=== PATIENT | female | born 1980 | race Caucasian/White ===

== ENCOUNTER 2019-02-15 06:56 | Inpatient (IN) | payer MEDICAID ==
[~2019-02-15] VITALS: Ht 149.9 cm; Wt 76.7 kg
[2019-02-15] MEDS ORDERED: DEXT 5%/LR + PITOCIN 20UNITS/L 1,000 ML IV SCH ×2 (07:19→12:23)
[2019-02-15] MEDS ORDERED: CITRIC ACID/SODIUM CITRATE SOLN 30ML UDC PO NR (07:45)
[2019-02-15 08:49] LABS: BASOPHILS % 0.5 % (0.0-2.0); HEMATOCRIT. 37.4 % (36.0-48.0); HEMOGLOBIN. 12.8 g/dL (12.0-16.0); LYMPHOCYTES % 24.3 % (20.0-50.0); MEAN CORPUSCULAR HEMOGLOBIN 33.6 pg (28.0-32.0); MEAN CORPUSCULAR VOLUME 98.4 fL (81.0-99.0); MONOCYTES % 5.6 % (2.0-8.0); NEUTROPHILS % 68.6 % (40.0-76.0); RED CELL DISTRIBUTION WIDTH 14.2 % (11.6-14.6)
[2019-02-15 08:55] LABS: INR 0.9; PARTIAL THROMBOPLASTIN TIME 21.4 sec (23.4-31.0); PROTHROMBIN TIME 9.3 sec (9.6-11.0)
[2019-02-15 09:02] LABS: CLARITY URINE CLOUDY (CLEAR); COLOR URINE YELLOW (YELLOW); KETONES URINE NEGATIVE (NEGATIVE); LEUKOCYTE ESTERASE URINE 3+ (NEGATIVE); NITRITE URINE NEGATIVE (NEGATIVE); OCCULT BLOOD URINE NEGATIVE (NEGATIVE); PROTEIN URINE NEGATIVE (NEGATIVE); SPECIFIC GRAVITY URINE 1.016 (1.005-1.030); UROBILINOGEN URINE 0.2 E.U./dL (0.2-1.0)
[2019-02-15] MEDS ORDERED: STERILE WATER FOR INJECTION 10ML VIAL ONE (09:40)
[2019-02-15] MEDS ORDERED: BUPIVACAINE HCL/DEXTROSE/PF 0.75% 2ML AMP INJ ONE (09:43)
[2019-02-15 10:03] LABS: PLATELET 186 x1000/uL (130-400)
[2019-02-15 10:42] LABS: HEPATITIS B SURFACE ANTIGEN NEGATIVE
[2019-02-15] MEDS ORDERED: MORPHINE SULFATE/PF 1MG/ML 10ML AMP ONE (11:16)
[2019-02-15] MEDS ORDERED: PROPOFOL 200MG/20ML VIAL IV ONE (11:47)
[2019-02-15] MEDS ORDERED: HYDROMORPHONE HCL/PF 2MG/ML CPJ IM PRN (12:30)
[2019-02-15] MEDS ORDERED: RHO(D) IMMUNE GLOBULIN 300 MCG/SYR IM PRN (12:30)
[2019-02-15] MEDS ORDERED: BISACODYL 10MG SUPP PR PRN (12:30)
[2019-02-15 14:08] LABS: *BARBITURATES SCREEN URINE NEGATIVE (NEGATIVE); *BENZODIAZEPINES SCREEN URINE NEGATIVE (NEGATIVE); *COCAINE SCREEN URINE NEGATIVE (NEGATIVE)
[2019-02-15 14:09] LABS: *AMPHETAMINES SCREEN URINE NEGATIVE (NEGATIVE); CANNABINOID URINE SCREEN NEGATIVE (NEGATIVE); METHADONE URINE SCREEN NEGATIVE (NEGATIVE); OPIATES URINE SCREEN NEGATIVE (NEGATIVE); PHENCYCLIDINE URINE SCREEN NEGATIVE (NEGATIVE)
[2019-02-15 14:15] VITALS: BP 99/54
[2019-02-15 14:45] VITALS: BP 101/51
[2019-02-15 15:30] VITALS: BP 100/54
[2019-02-15 16:00] VITALS: BP 102/50
[2019-02-15 19:20] VITALS: BP 103/54
[2019-02-15] MEDS: LACTATED RINGERS 1,000 ML IV SCH (22:00)
[2019-02-15 23:30] VITALS: BP 99/65
[2019-02-16 04:00] VITALS: BP 90/64
[2019-02-16] MEDS: LACTATED RINGERS 1,000 ML IV SCH (04:04)
[2019-02-16 07:32] VITALS: BP 95/50
[2019-02-16 08:02] LABS: BASOPHILS % 0.1 % (0.0-2.0); EOSINOPHILS % 0.2 % (0.0-5.0); HEMATOCRIT. 31.5 % (36.0-48.0); LYMPHOCYTES % 21.3 % (20.0-50.0); MEAN CORPUSCULAR HEMOGLOBIN 34.1 pg (28.0-32.0); MEAN CORPUSCULAR VOLUME 97.7 fL (81.0-99.0); MEAN PLATELET VOLUME 10.2 fl (7.4-10.4); MONOCYTES % 7.1 % (2.0-8.0); NEUTROPHILS % 71.3 % (40.0-76.0); PLATELET 136 x1000/uL (130-400); RED BLOOD CELL COUNT 3.22 mill/uL (4.2-5.4); RED CELL DISTRIBUTION WIDTH 14.2 % (11.6-14.6)
[2019-02-16] MEDS: IBUPROFEN 800MG TABLET PO PRN ×3 (09:04→19:28)
[2019-02-16 16:08] VITALS: BP 90/50
[2019-02-16 19:30] VITALS: BP 90/53
[2019-02-17] VITALS: BP 98/56
[2019-02-17] MEDS: IBUPROFEN 800MG TABLET PO PRN ×3 (02:41→18:00)
[2019-02-17 08:00] VITALS: BP 98/86
[2019-02-17 16:32] VITALS: BP 104/63
[2019-02-17 20:15] VITALS: BP 101/60
[2019-02-18] MEDS: IBUPROFEN 400MG TABLET PO PRN ×2 (01:11→11:07)
[2019-02-18 04:00] VITALS: BP 98/56
[2019-02-18] MEDS: IBUPROFEN 800MG TABLET PO PRN (07:03)
[2019-02-18 08:00] VITALS: BP 114/70
== END 2019-02-18 11:00 | disposition home or self-care (01) | DRG 540 ==
LOC: 8 EST LDRP 06:56 → OBSVTOIN 06:56 → 8 EST LDRP 07:03 → 8EST 14:05
PROVIDERS: ADMIT Obstetrics & Gynecology; ATTEND Obstetrics & Gynecology
PROC: 10D00Z1 Extraction of Products of Conception, Low, Open Approach (ICD-10-PCS; principal; 2019-02-15)
PROC: 0UB70ZZ Excision of Bilateral Fallopian Tubes, Open Approach (ICD-10-PCS; 2019-02-15)
DX: O34.211 Maternal care for low transverse scar from previous cesarean delivery (principal); O90.81 Anemia of the puerperium; Z30.2 Encounter for sterilization; Z37.0 Single live birth; Z3A.39 39 weeks gestation of pregnancy
CPT/HCPCS: 36415; 80305; 85049; 86592; 86703; 86762; 86850; 86900; 86920; 87340; 88302; 88307; A4216; G0378; J2274; J2590; J2704; J3490; J7120; A4315